=== PATIENT | male | born 1995 | race Caucasian/White ===

== ENCOUNTER 2017-10-03 18:34 | Emergency (ER) | payer BC ==
[~2017-10-03] VITALS: Ht 180.3 cm; Wt 85.5 kg
[2017-10-03 18:39] VITALS: BP 139/66; PULSE 90; TEMP 98
== END 2017-10-03 19:40 | disposition home or self-care (01) ==
LOC: COL.ER 18:34
DX: S93.402A Sprain of unspecified ligament of left ankle, initial encounter (principal); Z90.89 Acquired absence of other organs; X50.0XXA Overexertion from strenuous movement or load, initial encounter; Y93.67 Activity, basketball

== ENCOUNTER 2019-06-21 21:12 | Emergency (ER) | payer BC ==
[~2019-06-21] VITALS: Ht 180.3 cm; Wt 84.1 kg
[2019-06-21 22:07] VITALS: BP 129/72; PULSE 72; TEMP 98.1
== END 2019-06-21 22:08 | disposition home or self-care (01) ==
LOC: COL.ER 21:12
DX: S09.90XA Unspecified injury of head, initial encounter (principal); W19.XXXA Unspecified fall, initial encounter; W22.8XXA Striking against or struck by other objects, initial encounter; Y92.321 Football field as the place of occurrence of the external cause; Y93.61 Activity, american tackle football